=== PATIENT | male | born 1950 | race Caucasian/White ===

== ENCOUNTER → 2016-06-20 | Outpatient (CLI) | payer BC, OTHER ==
[~2016-06-20] MED LIST: ALLO100T PO; AMLO5TAB12 PO; COEN1CAP7 PO; EXFORGE; HYG/25 PO; KETO10TA PO; LEVO75TA5 PO; LIVALO PO; LOVAZA PO; MISC1CAP65 PO; MULT-506 PO; OXYC-57 PO; SYN75 PO
[2016-06-20 10:52] LABS: BASO % 0.4 %; BASO ABS # 0.06 K/uL (0-0.2); COMPLETE YES; EOS % 2.6 %; HEMATOCRIT 49.3 % (42-52); IG% 0.7 %; LYMPH % 24.7 %; LYMPH ABS # 3.73 K/uL (1.2-3.4); MEAN CELL VOLUME 88.8 fL (80-100); MEAN CORPUSCULAR HEMOGLOBIN 31.7 pg (25-34); MEAN CORPUSCULAR HGB CONC 35.7 g/dl (32-36); MEAN PLATELET VOLUME 9.6 fL (7.4-10.4); MONO % 8.6 %; PLATELET COUNT 266 K/uL (130-400); RED BLOOD COUNT 5.55 M/uL (4.7-6.1); WHITE BLOOD COUNT 15.13 K/uL (4.8-10.8)
[2016-06-20 11:40] LABS: BLOOD UREA NITROGEN 18 mg/dl (7-18); BUN/CREATININE RATIO 16.8 (10-20); CALCIUM 10.1 mg/dl (8.5-10.1); CARBON DIOXIDE 34 mmol/L (21-32); CHLORIDE 103 mmol/L (98-107); GLUCOSE 78 mg/dl (70-99); POTASSIUM 3.4 mmol/L (3.5-5.1); SODIUM 143 mmol/L (136-145)
== END | disposition home or self-care (01) ==
LOC: C.CPL 09:35
PROVIDERS: ATTEND Orthopaedic Surgery
DX: S86.011A Strain of right Achilles tendon, initial encounter (principal); X58.XXXA Exposure to other specified factors, initial encounter; Z01.812 Encounter for preprocedural laboratory examination; Z01.810 Encounter for preprocedural cardiovascular examination

== ENCOUNTER → 2016-06-23 | Day surgery (SDC) | payer BC, OTHER ==
[2016-06-22 08:33] VITALS: Ht 165.1 cm; Wt 79.5 kg
[~2016-06-23] VITALS: Ht 165.1 cm; Wt 79.5 kg
[~2016-06-23] MED LIST changes: +ATROPINE SULFATE 0.1 MG/ML 5ML SYR IV PRN; +BUPIVACAINE 0.5 % 5 MG/1 ML MPF 30ML VIAL ONE; +BUPIVACAINE/EPINEPHRINE 0.25% 1:200,000 30 ML VIAL ONE; +BUPIVACAINE/EPINEPHRINE 0.5% MPF 1:200,000 30 ML VIAL ONE; +CEFAZOLIN 1000MG/55 ML D5W IV SCH; +DEXAMETHASONE SOD INJ 4 MG/ML VIAL ONE; -EXFORGE; +EpHEDrine SULFATE 50MG/5ML SYR ONE; +EpHEDrine SULFATE INJ 50 MG/ML AMP IV PRN; +FENTANYL CITRATE INJ 50 MCG/1 ML 2 ML VIAL IV PRN; +FENTANYL CITRATE INJ 50 MCG/1 ML 2 ML VIAL ONE; +FLUMAZENIL 0.1 MG/1 ML 10 ML VIAL IV PRN; +GLYCOPYRROLATE INJ 0.2 MG/ML VIAL ONE; +HYDROmorphone INJ 2 MG/ML SYR/VIAL IV PRN; +LABETALOL HCL IV 5 MG/ML 20ML IV PRN; +LACTATED RINGER'S 1000ML 1,000 ML IV SCH; +LIDOCAINE HCL 2% 2 ML VIAL (20MG/ML) ONE; +MEPERIDINE HCL 25 MG/ML CARP IV PRN; +MIDAZOLAM HCL 1 MG/ML 2ML VIAL ONE; +NALOXONE HCL 0.4 MG/1 ML VIAL/CARP IV PRN; +NEOSTIGMINE METHYLSULFATE 5 MG/5 ML SYR ONE; +ONDANSETRON INJ 2 MG/ML 2 ML VIAL IV PRN; +ONDANSETRON INJ 2 MG/ML 2 ML VIAL ONE; +OXYCODONE/ACETAMINOPHEN 5-325 TAB PO PRN; +PHENYLEPHRINE 100MCG/ML 5ML SYR IV PRN; +PROPOFOL IV EMULSION 10 MG/ML 20 ML VIAL IV ONE; +ROCURONIUM BROMIDE 10 MG/ML 5 ML VIAL ONE; +ROPIVACAINE 0.5% 5 MG/ML 30 ML VIAL ONE; +SODIUM CHLORIDE 0.9% 1000ML 1,000 ML IV SCH; -SYN75 PO
--- NOTE | 2016-06-23 09:32 | History & Physical Bridge - [place] ---
H&P Re-Evaluation Bridge Note: I have examined the patient, reviewed the History & Physical and in the interval since the performance of the History & Physical I have noted the following changes of clinical significance: No changes noted
--- NOTE | 2016-06-23 12:25 | [facility] Post Operative Brief Note ---
Immediate Operative Summary Operative Date Jun 23, 2016. Pre-Operative Diagnosis Right achilles tendon rupture Post-Operative Diagnosis same Procedure(s) Performed Right Achilles Tendon Rupture Repair Surgeon Dr Weaver [employer] Librarian Surgeon(s) Aram Diaz PA-C Estimated Blood Loss 2 ML Findings as above Specimens 0 Complication(s) None Disposition Recovery Room / PACU
--- NOTE | 2016-06-23 12:30 | Discharge Instructions-SurgCtr ---
Discharge Instructions Date of Service Jun 23, 2016. Visit Reason for Visit: Right Achilles Tendon Rupture Discharge Discharge Diagnosis / Problem: SAME ABOVE Discharge Goals Goal(s): Decrease discomfort, Improve function Activity Recommendations Activity Limitations: as noted below Lifting Limitations: until after follow-up appointment Exercise/Sports Limitations: until after follow-up appointment Driving or Machine Use: AFTER FOLLOW-UP Weightbearing Status: Right non-weightbearing Anesthesia . Post Anesthesia Instructions: If you have had General Anesthesia or IV Sedation: * Do not drive today. * Resume driving when surgeon permits. * Do not make important decisions or sign legal documents today. * Call surgeon for: 1. Temperature elevations greater than 101 degrees F. 2. Uncontrollable pain. 3. Excessive bleeding. 4. Persistent nausea and vomiting. 5. Medication intolerance (nausea, vomiting or rash). * For nausea and vomiting use only clear liquids such as: tea, soda, bouillon until nausea subsides, then gradually increase diet as tolerated. * If you have any concerns or questions, call your surgeon's office. If physician is unavailable and it is an emergency, call 911 or go to the nearest emergency room. . Instructions / Follow-Up Instructions / Follow-Up MEDICATIONS: * Resume previous medications unless instructed otherwise by your surgeon. * Always take pain medication on a full stomach or with food to avoid upset stomach. * Do not drink alcohol or drive while taking narcotics. * Ibuprofen or Tylenol may be taken if narcotic not needed. SPECIAL CARE INSTRUCTIONS: __ None _X_ Keep extremity elevated and iced x 48 hours; apply ice 20-30 minutes 8-10 times/day. May remove at night. _X_ Crutches __ May discard when able __ Brace/Post-op shoe __ 24 hrs/day __ Remove at night _X_ Dressing _X_ Maintain until seen in office, may shower with plastic over site __ Remove dressings in 24-48 hours and then may shower __ Cover incisions with band-aids after showering __ Do not remove steri-strips Call physician if chills or temperature rises above 102 degrees or pain unrelieved by prescribed pain medications. Office [phone] Diet Recommendations Home Diet: no limitations Fluid Restriction: None Procedures Procedures Performed: Right Achilles Tendon Rupture Repair Pending Studies Studies pending at discharge: no Medical Emergencies . Who to Call and When: Medical Emergencies: If at any time you feel your situation is an emergency, please call 911 immediately. . Non-Emergent Contact Non-Emergency issues call your: Primary Care Provider Call Non-Emergent contact if: you have a fever, temperature is above 101.5 . . "Provider Documentation" section prepared by Jabari Diaz.
[2016-06-23 13:07] VITALS: BP 137/69; PULSE 74; TEMP 36.8; O2SAT 98
--- NOTE | 2016-06-23 13:17 | Anesthesia Progress Nt - [facility] ---
Anesthesia Post Op Note Date & Time Jun 23, 2016 at 13:16 Vital Signs Pain Intensity: 0 Vital Signs Past 12 Hours Date Time Temp Pulse Resp B/P Pulse Ox O2 Delivery O2 Flow Rate FiO2 06/23/16 13:02 81 14 06/23/16 13:02 81 14 99 06/23/16 13:01 116/69 06/23/16 12:57 36.7 57 12 113/65 95 Room Air 06/23/16 12:57 64 15 06/23/16 12:57 66 15 99 06/23/16 12:56 113/65 06/23/16 12:52 75 12 99 06/23/16 12:52 74 12 06/23/16 12:51 123/74 06/23/16 12:48 80 21 06/23/16 12:48 79 21 92 06/23/16 12:46 125/69 06/23/16 12:43 85 27 06/23/16 12:43 86 27 92 06/23/16 12:41 123/74 06/23/16 12:38 87 20 06/23/16 12:38 85 20 98 06/23/16 12:36 126/72 06/23/16 12:33 79 18 99 06/23/16 12:33 78 18 06/23/16 12:31 143/75 06/23/16 12:28 150/76 06/23/16 12:28 36.8 84 12 150/76 99 Diffusion Mask 6 06/23/16 10:56 111/73 06/23/16 10:55 10 06/23/16 10:55 10 06/23/16 10:51 111/78 06/23/16 10:50 13 06/23/16 10:50 13 06/23/16 10:46 113/72 06/23/16 10:45 20 06/23/16 10:45 56 20 06/23/16 10:42 106/70 06/23/16 10:40 17 125/72 06/23/16 10:40 17 06/23/16 09:41 37.0 56 18 129/81 96 Room Air Notes Mental Status: alert / awake / arousable, participated in evaluation Pt Amnestic to Procedure: Yes Nausea / Vomiting: adequately controlled Pain: adequately controlled Airway Patency, RR, SpO2: stable & adequate BP & HR: stable & adequate Hydration State: stable & adequate Anesthetic Complications: no major complications apparent
--- NOTE | 2016-06-23 14:20 | OPERATIVE REPORT ---
DATE OF OPERATION: 06/23/2016 PREOPERATIVE DIAGNOSIS: Acute right Achilles tendon rupture. POSTOPERATIVE DIAGNOSIS: Same. PROCEDURE: Open Achilles tendon repair. SURGEON: Dr. Saúl Weaver. ORCHARD MANAGER: Kevan Diaz PA-C, whose assistance was necessary for positioning of the leg and helping with retraction. ANESTHESIA: General. COMPLICATIONS: None. CONDITION: Stable to PACU. INDICATIONS: Angel is a pleasant 65-year-old male who tore his Achilles several days ago. It was obvious on clinical examination and MRI was not done. He did have an Achilles rupture on his contralateral side about 8 years ago which was fixed and he did well. He elected to undergo operative fixation on the right side. OPERATION AND FINDINGS: On 06/23/2016 he arrived at [facility] for the above procedure. He was seen in the preoperative holding area and the operative extremity was identified and signed. He was given a preoperative antibiotic, taken back to the operating room, laid on the table in supine position and put under general anesthesia. He was then put into the prone position. The right Achilles was then prepped and draped in a sterile fashion. Time-out was done and the patient and operative extremity was properly identified. A longitudinal incision was made medial to the Achilles tendon. Dissection was taken down through the fascia and the peritenon was incised. The torn Achilles was easily identified. It was torn in the hypovascular watershed region. A #5 FiberWire suture was used to whipstitch the proximal stump and an additional #5 FiberWire was used to whipstitch the distal stump. The knots were then tied. A #2 FiberWire was used in a running fashion around the edges of the tendon to ensure adequate approximation. I was happy with the overall alignment and the tension on the tendon. The peritenon was then closed with 2-0 Vicryl suture in a running fashion. The skin was then closed with 3-0 Vicryl and 3-0 nylon suture in a mattress fashion. He was then placed in a posterior splint, extubated, transferred to a [facility] and taken to the postanesthesia care unit in stable condition. He tolerated the procedure well. I attest to the content of the Intraoperative Record and any orders documented therein. Any exceptio ns are noted below.
--- NOTE | 2016-06-24 14:29 | Anesthesiology Progress Note ---
Anesthesia Progress Note Date of Service Jun 24, 2016. Progress Notes The patient underwent a R ankle surgery yesterday and had a popliteal block. He is able to move his leg but continues to have some numbness in his toes. I spoke to him over the phone and told him while the block usually is worn off at this point that occasionally it may last this long. I gave the patient my phone number and told him to call me if the block is not wearing off by tomorrow afternoon to which he agreed.
== END | disposition home or self-care (01) ==
LOC: X.SURG 09:09
PROVIDERS: ATTEND Orthopaedic Surgery
DX: S86.011A Strain of right Achilles tendon, initial encounter (principal); X58.XXXA Exposure to other specified factors, initial encounter; K21.9 Gastro-esophageal reflux disease without esophagitis; Z98.890 Other specified postprocedural states; I10 Essential (primary) hypertension; Y93.89 Activity, other specified; Y99.8 Other external cause status; Y92.89 Other specified places as the place of occurrence of the external cause